=== PATIENT | female | born 1955 | race Asian ===

== ENCOUNTER 2021-06-16 00:57 | Day surgery (SDC) | payer OTHER, SELFPAY ==
[2021-06-06 08:47] VITALS: BMI 23.1
[2021-06-16 11:04] VITALS: BP 114/78; PULSE 82; RESP 18; TEMP 36.2; O2SAT 99; BMI 22.6
--- NOTE | 2021-06-16 11:13 | P.PNAN_ITS ---
Anes - Initial Pre Proc Eval Procedure: Operation Date: 06/16/21 12:30 Proposed Procedures p Screening Colonoscopy - Eddy Chaudhry MD Date/Time: 06/16/21 11:13 Surgeon: Eddy Chaudhry MD Pre Op Diagnosis: neoplasm screening Patient Data Age: 66 Gender: F Height: 1.63 m Weight: 61 kg Allergies Allergy/AdvReac Type Severity Reaction Status Date / Time aspirin Allergy Mild SWELLING Verified 06/16/21 11:11 Home Medications Medication Instructions Recorded Confirmed Type calcium carbonate 600 mg calcium 600 mg PO BID 03/29/20 06/16/21 History (1,500 mg) tablet cholecalciferol (vitamin D3) 50 50 mcg PO DAILY 03/29/20 06/16/21 History mcg (2,000 unit) capsule cyanocobalamin (vitamin B-12) 1,000 mcg PO DAILY 03/29/20 06/16/21 History 1,000 mcg tablet loratadine 10 mg capsule 10 mg PO DAILY 03/29/20 06/16/21 History magnesium oxide 400 mg PO DAILY 03/29/20 06/16/21 History multivitamin 1 tablet PO DAILY 03/29/20 06/16/21 History pyridoxine (vitamin B6) 100 mg 100 mg PO DAILY 03/29/20 06/16/21 History tablet denosumab 60 mg/mL subcutaneous 60 mg SUBCUT [id number] #1 ml 04/09/21 06/16/21 Rx syringe Patient hx anesthesia problems: none Family hx anesthesia problems: none Results Review: All pre-operative results and documents have been reviewed as part of the pre-operative evaluation. [facility] Past Medical History Medical History (Updated 06/13/21 @ 19:11 by Peter Alfaro DO) GERD (gastroesophageal reflux disease) Social History Social History Living arrangements: with family Spiritual care concerns: No Anes - Eval Final PreProcedure Day of Procedure 06/16/21 11:13 Patient weight: normal Heart: regular rate and rhythm Lungs: clear to auscultation and normal air movement Airway: Mallampati scale class II Neurological: alert and oriented Last oral intake: >/= 8 hours ASA classification: II Emergent: no Anesthetic plan: proceed Anesthesia type and monitoring: general GIVS and standard monitoring Results Review: All pre-operative results and documents have been reviewed as part of the pre-operative evaluation. Informed Consent: The patient's anesthetic plan and its attendant risks and benefits were discussed with the patient/family/POA. Questions were solicited and answers provided to the satisfaction of the patient/family/POA.
[2021-06-16] MEDS: LACTATED RINGERS 1,000 ML 150 ML IV CONT (11:27)
--- NOTE | 2021-06-16 11:48 | PM.HPGS ---
History of Present Illness History of Present Illness Consent: Risks, benefits, and alternatives have been discussed and questions answered. Patient agrees to proceed with procedure. Chief complaint: neoplasm screening Narrative: Renee Hernandez is a 66 year old female here for screening colonoscopy, last one over 10 years ago. Review of Systems Constitutional: Constitutional: Denies headache(s) and Denies weakness Eyes: Eyes: Denies blurry vision ENT: Reports Normal hearing present, Denies headache(s) and Denies neck pain Cardiovascular: Cardiovascular: Denies chest pain and Denies dyspnea Respiratory: Respiratory: Denies dyspnea Gastrointestinal: Gastrointestinal: Reports no additional gastrointestinal complaints Genitourinary: Genitourinary: Denies dysuria Musculoskeletal: Musculoskeletal: Denies neck pain Integumentary/Breasts: Skin/Breast: Denies dry skin Neurologic: Reports Normal hearing present, Denies headache(s) and Denies weakness Psychiatric: Psychiatric: Denies anxiety Endocrine: Endocrine: Denies change in body appearance Hematologic/Lymphatic: Hematologic/Lymphatic: Denies easy bleeding Allergic/Immunologic: Allergic/Immunologic: Denies urticaria PMFSH Past Medical History Medical History (Updated 06/16/21 @ 11:49 by Eddy Chaudhry MD) Encounter for screening colonoscopy GERD (gastroesophageal reflux disease) Social History Social History Living arrangements: with family Spiritual care concerns: No Meds Home Medications and Allergies Home Medications Medication Instructions Recorded Confirmed Type calcium carbonate 600 mg calcium 600 mg PO BID 03/29/20 06/16/21 History (1,500 mg) tablet cholecalciferol (vitamin D3) 50 50 mcg PO DAILY 03/29/20 06/16/21 History mcg (2,000 unit) capsule cyanocobalamin (vitamin B-12) 1,000 mcg PO DAILY 03/29/20 06/16/21 History 1,000 mcg tablet loratadine 10 mg capsule 10 mg PO DAILY 03/29/20 06/16/21 History magnesium oxide 400 mg PO DAILY 03/29/20 06/16/21 History multivitamin 1 tablet PO DAILY 03/29/20 06/16/21 History pyridoxine (vitamin B6) 100 mg 100 mg PO DAILY 03/29/20 06/16/21 History tablet denosumab 60 mg/mL subcutaneous 60 mg SUBCUT [id number] #1 ml 04/09/21 06/16/21 Rx syringe Allergies Allergy/AdvReac Type Severity Reaction Status Date / Time aspirin Allergy Mild SWELLING Verified 06/16/21 11:11 Vital Signs Vital Signs - 24 hr 06/16/21 11:04 Temperature 97.2 F L Pulse Rate 82 Respiratory Rate 18 Blood Pressure 114/78 Pulse Oximetry 99 Exam Const: General: comfortable and no acute distress HENMT: General nose exam: Normal nares present Eyes: General: appearance normal, both eyes and all related structures Neck: Neck: no JVD Resp: Auscultation: clear to auscultation bilaterally Cardio: Rate: regular rate Rhythm: regular rhythm GI: Inspection: non-distended GI Palp: Yes Soft to palpation Skin: General skin exam: normal color Neuro: General: gait normal Speech: normal speech Extrem: General: normal to inspection Psych: Mental Status: mental status grossly normal Assessment and Plan Assessment and plan (1) Encounter for screening colonoscopy: Code(s): Z12.11 - Encounter for screening for malignant neoplasm of colon Status: Acute Assessment and Plan: colonoscopy
[2021-06-16 12:27] VITALS: BP 86/57; PULSE 73; RESP 15; O2SAT 96
[2021-06-16 12:37] VITALS: BP 94/63; PULSE 61; RESP 13; O2SAT 100
[2021-06-16 12:47] VITALS: BP 129/80; PULSE 67; RESP 18; O2SAT 100
== END 2021-06-16 12:57 | disposition home or self-care (01) ==
PROVIDERS: PCP Family Medicine; Visit Provider Internal Medicine Gastroenterology
PROC: 0DJD8ZZ Inspection of Lower Intestinal Tract, Via Natural or Artificial Opening Endoscopic (ICD-10-PCS; CPT 45378; principal; 2021-06-16 12:30)
DX: Z12.11 Encounter for screening for malignant neoplasm of colon (principal); K63.5 Polyp of colon; K21.9 Gastro-esophageal reflux disease without esophagitis; K64.8 Other hemorrhoids
CPT/HCPCS: 45385; 88305; J2704; J7120